=== PATIENT | female | born 1995 | race African-American/Black ===

== ENCOUNTER 2021-01-02 15:46 | Emergency (ER) | payer MEDICAID ==
[~2021-01-02] VITALS: Ht 165.1 cm; Wt 82.0 kg
[2021-01-02 15:54] VITALS: BP 125/81
[2021-01-02] MEDS ORDERED: ACETAMINOPHEN 325MG TABLET PO ONE (16:45)
== END 2021-01-02 17:51 | disposition home or self-care (01) ==
LOC: ER 15:46
DX: S16.1XXA Strain of muscle, fascia and tendon at neck level, initial encounter (principal); V43.52XA Car driver injured in collision with other type car in traffic accident, initial encounter; Y93.89 Activity, other specified; Y92.481 Parking lot as the place of occurrence of the external cause
CPT/HCPCS: 99282

== ENCOUNTER 2024-01-11 13:42 | Emergency (ER) | payer OTHER ==
[~2024-01-11] VITALS: Ht 165.1 cm; Wt 100.0 kg
[2024-01-11 13:50] VITALS: O2SAT 98
[2024-01-11] MEDS: LIDOCAINE 5% PATCH TOP SCH (14:00)
[2024-01-11] MEDS ORDERED: IBUPROFEN 400MG TABLET PO ONE (14:00)
[2024-01-11] MEDS ORDERED: NAPR-1176 MT (15:41)
[2024-01-11] MEDS ORDERED: LIDO700A15 TP (15:41)
[2024-01-11] MEDS: IBUPROFEN 400MG TABLET PO NR (15:56)
[2024-01-11 16:20] VITALS: BP 147/87; PULSE 72; RESP 18; TEMP 37.11408; O2SAT 98
== END 2024-01-11 16:28 | disposition home or self-care (01) ==
LOC: ER 13:42
DX: M25.561 Pain in right knee (principal); I10 Essential (primary) hypertension; Z79.1 Long term (current) use of non-steroidal anti-inflammatories (NSAID)
CPT/HCPCS: 73562; 99283

== ENCOUNTER 2024-04-21 23:31 | Emergency (ER) | payer OTHER ==
[~2024-04-21] VITALS: Ht 165.1 cm; Wt 100.0 kg
[~2024-04-21 23:31] MED LIST: LIDO700A15 TP; NAPR-1176 MT
[2024-04-21 23:51] VITALS: O2SAT 95
[2024-04-21 23:59] VITALS: BP 145/101; PULSE 74; RESP 16; TEMP 36.8; O2SAT 100
[2024-04-22 00:41] LABS: BASOPHILS % 0.7 % (0.0-2.0); EOSINOPHILS % 1.8 % (0.0-5.0); HEMATOCRIT. 41.7 % (36.0-48.0); HEMOGLOBIN. 14.2 g/dL (12.0-16.0); MEAN PLATELET VOLUME 7.7 fl (7.4-10.4); MONOCYTES % 8.5 % (2.0-8.0); PLATELET 359 x1000/uL (130-400); RED CELL DISTRIBUTION WIDTH 15.2 % (11.6-14.6); WHITE BLOOD COUNT 9.1 x1000/uL (4.5-11.0)
[2024-04-22] MEDS ORDERED: SODIUM CHLORIDE 0.9% 1,000 ML IV ONE (00:45)
[2024-04-22 00:48] LABS: CHLORIDE 106 mEq/L (98-107); POTASSIUM 4.4 mEq/L (3.5-5.1); SODIUM 142 mEq/L (136-145)
[2024-04-22 00:49] LABS: CALCIUM 9.7 mg/dL (8.7-10.4); CARBON DIOXIDE 29 mEq/L (21-32)
[2024-04-22 00:54] LABS: CREATININE 0.9 mg/dL (0.6-1.0); GLUCOSE 88 mg/dL (70-105); UREA NITROGEN BLOOD 8 mg/dL (9-23)
[2024-04-22 00:55] LABS: ALANINE AMINOTRANSFERASE 37 IU/L (10-49); ALBUMIN 4.4 g/dL (3.2-4.8); ASPARTATE AMINOTRANSFERASE 54 IU/L (<34)
[2024-04-22 00:56] LABS: BILIRUBIN DIRECT 0.1 mg/dL (<=3.0); BILIRUBIN TOTAL 0.3 mg/dL (0.1-1.0); PROTEIN TOTAL 6.9 g/dL (6.0-8.3)
[2024-04-22] MEDS: ONDANSETRON HCL 4MG TABLET PO ONE (01:24)
[2024-04-22] MEDS: MAGNESIUM/ALUMINUM HYDROXIDE/SIMETHICONE 30ML UDC PO ONE (01:24)
[2024-04-22 02:49] LABS: CLARITY URINE CLOUDY (CLEAR); COLOR URINE YELLOW (YELLOW); GLUCOSE URINE NEGATIVE (NEGATIVE); KETONES URINE NEGATIVE (NEGATIVE); LEUKOCYTE ESTERASE URINE NEGATIVE (NEGATIVE); NITRITE URINE NEGATIVE (NEGATIVE); OCCULT BLOOD URINE NEGATIVE (NEGATIVE); PH URINE 8.5 (4.5-8.0); PROTEIN URINE 1+ (NEGATIVE); SPECIFIC GRAVITY URINE 1.023 (1.005-1.030)
[2024-04-22] MEDS ORDERED: FAMO-135 MT (03:07)
[2024-04-22] MEDS ORDERED: OMEP20CA14 MT (03:07)
[2024-04-22] MEDS ORDERED: MAG-55 MT (03:07)
[2024-04-22 03:50] LABS: SQUAMOUS EPITHELIAL CELL URINE 1+ /lpf (RARE/1+)
[2024-04-22 03:54] LABS: BACTERIA URINE NONE SEEN; RBC URINE NONE SEEN /hpf (0-2); WBC URINE NONE SEEN /hpf (0-2)
[2024-04-22 03:55] LABS: AMORPHOUS SEDIMENT URINE 1+ /lpf
[2024-04-22 04:04] LABS: UCG SCREEN NEGATIVE
== END 2024-04-22 04:05 | disposition home or self-care (01) ==
LOC: ER 23:31
DX: K21.9 Gastro-esophageal reflux disease without esophagitis (principal); I10 Essential (primary) hypertension; Z79.1 Long term (current) use of non-steroidal anti-inflammatories (NSAID)
CPT/HCPCS: 99283; 80076; 80048; 83690; 85025; 36415; 81003; 81025; Q0162; J7030

== ENCOUNTER 2025-02-28 15:02 | Emergency (ER) | payer SELFPAY ==
[~2025-02-28] VITALS: Ht 165.1 cm; Wt 92.0 kg
[~2025-02-28 15:02] MED LIST changes: +FAMO-135 MT; +LIDO-53 TP; -LIDO700A15 TP; +MAG-55 MT; +OMEP20CA14 MT
[2025-02-28 15:20] VITALS: O2SAT 98
[2025-02-28] MEDS ORDERED: ACET-2708 MT (17:10)
[2025-02-28] MEDS ORDERED: CAPS42.514 TP (17:10)
[2025-02-28] MEDS ORDERED: IBUP-1455 MT (17:10)
[2025-02-28] MEDS: ACETAMINOPHEN 325MG TABLET PO ONE (17:19)
[2025-02-28 18:48] VITALS: BP 137/94; PULSE 96; RESP 18; TEMP 37; O2SAT 99
== END 2025-02-28 18:49 | disposition home or self-care (01) ==
LOC: ER 15:02
DX: M79.674 Pain in right toe(s) (principal); I10 Essential (primary) hypertension; Z79.1 Long term (current) use of non-steroidal anti-inflammatories (NSAID)
CPT/HCPCS: 73130; 29130; 99283; Z7610